=== PATIENT | female | born 1985 | race African-American/Black ===

== ENCOUNTER 2018-01-04 23:26 | Emergency (ER) | payer OTHER ==
[2018-01-04 23:57] VITALS: BP 119/78
[2018-01-05] MEDS ORDERED: DIPHENHYDRAMINE HCL 50 MG CAPSULE PO ONE (02:16)
[2018-01-05] MEDS ORDERED: METOCLOPRAMIDE HCL 10 MG TABLET PO ONE (02:16)
[2018-01-05] MEDS ORDERED: KETOROLAC TROMETHAMINE 60 MG/2 ML SDV IM ONE (02:16)
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
== END 2018-01-05 03:12 | disposition home or self-care (01) ==
LOC: ER 23:26
DX: R51 Headache (principal); R10.9 Unspecified abdominal pain; R11.2 Nausea with vomiting, unspecified; D57.1 Sickle-cell disease without crisis; J45.909 Unspecified asthma, uncomplicated
CPT/HCPCS: 99283; 96372; J1885

== ENCOUNTER 2018-04-12 21:03 | Emergency (ER) | payer SELFPAY ==
[2018-04-12 22:05] LABS: ABSOLUTE BASOPHILS # (AUTO) 0.1 10^3/uL (0.0-0.2); ABSOLUTE EOSINOPHILS # (AUTO) 0.1 10^3/uL (0.0-0.6); ABSOLUTE RETICS # 0.074 10^6/uL (0.028-0.122); BASOPHILS % (AUTO) 0.6 % (0-2); EOSINOPHILS % (AUTO) 1.3 % (0-6); HEMATOCRIT 31.9 % (36.0-47.0); HEMOGLOBIN 10.8 g/dL (12.0-15.5); LYMPHOCYTES % (AUTO) 29.6 % (13-45); MEAN CORPUSCULAR HEMOGLOBIN 27.6 pg (27.0-33.4); MEAN CORPUSCULAR HGB CONC 33.8 g/dL (32.0-36.0); MEAN CORPUSCULAR VOLUME 82 fl (80-97); MONOCYTES % (AUTO) 9.8 % (3-13); PLATELET COUNT 316 10^3/uL (150-450); RED BLOOD COUNT 3.91 10^6/uL (3.72-5.28); RED CELL DISTRIBUTION WIDTH 15.5 % (11.5-14.0); RETICULOCYTE COUNT (AUTO) 1.88 % (0.66-2.85); SEGMENTED NEUTROPHILS % (AUTO) 58.7 % (42-78); TOTAL CELLS COUNTED % (AUTO) 100 %; WHITE BLOOD COUNT 10.3 10^3/uL (4.0-10.5)
[2018-04-12 22:18] LABS: ALANINE AMINOTRANSFERASE 20 U/L (9-52); ALBUMIN 3.6 g/dL (3.5-5.0); ALKALINE PHOSPHATASE 72 U/L (38-126); ANION GAP 9 (5-19); ASPARTATE AMINO TRANSFERASE 13 U/L (14-36); BILIRUBIN,DIRECT 0.3 mg/dL (0.0-0.4); BILIRUBIN,TOTAL 0.3 mg/dL (0.2-1.3); BLOOD UREA NITROGEN 11 mg/dL (7-20); CALCIUM 8.9 mg/dL (8.4-10.2); CARBON DIOXIDE 30 mmol/L (22-30); CHLORIDE 102 mmol/L (98-107); GLUCOSE 93 mg/dL (75-110); POTASSIUM 3.9 mmol/L (3.6-5.0); SODIUM 141.2 mmol/L (137-145); TOTAL PROTEIN 6.9 g/dL (6.3-8.2)
[2018-04-12] MEDS ORDERED: NORMAL SALINE 1000 ML 1,000 ML IV ONE (22:23)
[2018-04-12] MEDS ORDERED: HYDROMORPHONE HCL INJ/PF 2 MG/ML AMPULE IV ONE (22:27)
--- NOTE | 2018-04-12 22:30 | ER Document Report ---
ED General - General Chief Complaint: Sickle Cell Crisis Stated Complaint: ARM/HAND PAIN Time Seen by Provider: 04/12/18 22:21 Mode of Arrival: Ambulatory Information source: Patient Notes: 32-year-old female presents emergency department with complaints of hand and feet pain has been going on for the last 2 days. Patient states that she has a history of sickle cell disease. She follows up in [place]. Patient states that this feels like her typical sickle cell flareup. Patient states that she has been taking muscle relaxants without relief of symptoms. Patient denies any fever, chills, chest pain, shortness of breath, numbness, tingling, or weakness. TRAVEL OUTSIDE OF THE [place] IN LAST 30 DAYS: No - HPI Onset: Other - 2 days Onset/Duration: Gradual Quality of pain: Achy Severity: Moderate Associated symptoms: None Exacerbated by: Denies Relieved by: Denies Similar symptoms previously: Yes Recently seen / treated by doctor: No - Related Data Allergies/Adverse Reactions: carrot Allergy (Verified 07/14/16 11:14) Past Medical History - Social History Smoking Status: Never Smoker Family History: Arthritis, DM, Hypertension, Other - sickle cell. denies: CAD, COPD, CVA, Hyperlipidemia, Malignancy, Thyroid Disfunction Pulmonary Medical History: Reports: Hx Asthma Neurological Medical History: Reports: Hx Seizures - last one last week does not have freq Renal/ Medical History: Reports: Hx Ovarian Cysts. Denies: Hx Peritoneal Dialysis Skin Medical History: Reports Hx Eczema - Immunizations Immunizations up to date: Yes Hx Diphtheria, Pertussis, Tetanus Vaccination: Yes - 2014 Review of Systems - Review of Systems Constitutional: No symptoms reported EENT: No symptoms reported Cardiovascular: No symptoms reported Respiratory: No symptoms reported Gastrointestinal: No symptoms reported Genitourinary: No symptoms reported Musculoskeletal: Joint pain, Muscle pain Skin: No symptoms reported Hematologic/Lymphatic: No symptoms reported Neurological/Psychological: No symptoms reported -: Yes All other systems reviewed and negative Physical Exam - Vital signs Vitals: Temp Pulse Resp BP Pulse Ox 97.9 F 88 15 123/85 99 04/12/18 21:07 04/12/18 21:07 04/12/18 21:07 04/12/18 21:07 04/12/18 21:07 Interpretation: Normal - Notes Notes: PHYSICAL EXAMINATION: GENERAL: Well-appearing, well-nourished and in no acute distress. HEAD: Atraumatic, normocephalic. EYES: Pupils equal round and reactive to light, extraocular movements intact, conjunctiva are normal. ENT: Nares patent, oropharynx clear without exudates. Moist mucous membranes. NECK: Normal range of motion, supple without lymphadenopathy LUNGS: Breath sounds clear to auscultation bilaterally and equal. No wheezes rales or rhonchi. HEART: Regular rate and rhythm without murmurs ABDOMEN: Soft, nontender, nondistended abdomen. No guarding, no rebound. No masses appreciated. Female : deferred Musculoskeletal: Normal range of motion, no pitting or edema. No cyanosis. 2+ radial and DP/PT pulses. NEUROLOGICAL: Cranial nerves grossly intact. Normal speech, normal gait. Normal sensory, motor exams PSYCH: Normal mood, normal affect. SKIN: Warm, Dry, normal turgor, no rashes or lesions noted. Course - Re-evaluation Re-evalutation: 04/12/18 23:45 Patient feeling better on reevaluation. Labs are within normal limits. I will discharge patient home. Patient instructed to continue taking her medication as directed, to follow-up with her primary care physician this week, and to return to the emergency department for any worsening symptoms. - Vital Signs Vital signs: Temp Pulse Resp BP Pulse Ox 97.9 F 88 15 123/85 99 04/12/18 21:07 04/12/18 21:07 04/12/18 21:07 04/12/18 21:07 04/12/18 21:07 - Laboratory Result Diagrams: 04/12/18 21:50 04/12/18 21:50 Laboratory results interpreted by me: 04/12/18 04/12/18 21:50 21:50 Hgb 10.8 L Hct 31.9 L RDW 15.5 H AST 13 L Discharge - Discharge Clinical Impression: Sickle cell anemia Qualifiers: Sickle-cell associated disorders: with unspecified crisis Qualified Code(s): D57.00 - Hb-SS disease with crisis, unspecified; D57.0 - Hb-SS disease with crisis Condition: Good Disposition: HOME, SELF-CARE Instructions: Sickle Cell Crisis ([facility]) Referrals: ROXIE FRANKS MD [COMMUNITY BASED STAFF] - Follow up as needed ECHO BARKER MD [ACTIVE STAFF] - Follow up as needed
[2018-04-13 00:10] VITALS: BP 125/81
== END 2018-04-13 00:09 | disposition home or self-care (01) ==
LOC: ER 21:03
DX: D57.00 Hb-SS disease with crisis, unspecified (principal); J45.909 Unspecified asthma, uncomplicated; Z91.018 Allergy to other foods
CPT/HCPCS: 99284; 36415; 85025; 85045; 80053; J1170; J7030

== ENCOUNTER 2018-07-29 07:16 | Emergency (ER) | payer OTHER ==
[2018-07-29] MEDS ORDERED: IBUPROFEN 800 MG TABLET PO ONE (08:17)
[2018-07-29] MEDS ORDERED: HYDROCODONE/ACETAMINOPHEN 5-325 MG TABLET PO ONE (08:17)
[2018-07-29] MEDS ORDERED: PENICILLIN V POTASSIUM 500 MG TABLET PO ONE (08:17)
--- NOTE | 2018-07-29 08:23 | ER Document Report ---
HPI - HPI Patient complains to provider of: Dental pain, finger pain Onset/Duration: Persistent Quality of pain: Achy Pain Level: 4 Context: Patient presents complaining of right upper dental pain that started yesterday and complains of right fourth finger pain for the past 4 days. Patient denies any specific injury to the finger. 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 Associated Symptoms: Other - Right fourth finger pain, dental pain Exacerbated by: Movement Relieved by: Denies Similar symptoms previously: Yes - Dental pain Recently seen / treated by doctor: No - ROS ROS below otherwise negative: Yes Systems Reviewed and Negative: Yes All other systems reviewed and negative - CONSTITUTIONAL Constitutional: DENIES: Fever - EENT Notes: Dental pain - RESPIRATORY Respiratory: DENIES: Coughing - GASTROINTESTINAL Gastrointestinal: DENIES: Nausea, Patient vomiting - MUSCULOSKELETAL Musculoskeletal: REPORTS: Extremity pain - Right fourth finger. DENIES: Swelling - DERM Skin Color: Normal Skin Problems: None Past Medical History - General Information source: Patient - Social History Smoking Status: Never Smoker Frequency of alcohol use: None Drug Abuse: None Occupation: [employer] plant Lives with: Spouse/Significant other Family History: Arthritis, DM, Hypertension, Other - sickle cell. denies: CAD, COPD, CVA, Hyperlipidemia, Malignancy, Thyroid Disfunction - Medical History Medical History: Other - Sickle cell disease Pulmonary Medical History: Reports: Hx Asthma Neurological Medical History: Reports: Hx Seizures - last one last week does not have freq Renal/ Medical History: Reports: Hx Ovarian Cysts. Denies: Hx Peritoneal Dialysis Skin Medical History: Reports Hx Eczema Surgical Hx: Negative - Immunizations Immunizations up to date: Yes Hx Diphtheria, Pertussis, Tetanus Vaccination: Yes - 2015 Vertical Provider Document - CONSTITUTIONAL Agree With Documented VS: Yes Exam Limitations: No Limitations General Appearance: WD/WN, No Apparent Distress - INFECTION CONTROL TRAVEL OUTSIDE OF THE [place] IN LAST 30 DAYS: No - HEENT HEENT: Atraumatic, Normocephalic Mouth Diagram: 1 - Dental decay, fracture, no gingival abscess, no trismus - NECK Neck: Normal Inspection, Supple. negative: Lymphadenopathy-Left, Lymphadenopathy-Right - RESPIRATORY Respiratory: No Respiratory Distress - BACK Back: Normal Inspection - MUSCULOSKELETAL/EXTREMETIES Musculoskeletal/Extremeties: MAEW, FROM, Tender - Right fourth finger tenderness about the PIP joint, no tendon deficit, no edema or calor noted overlying joint., No Edema. negative: Eccymosis - NEURO Level of Consciousness: Awake, Alert, Appropriate Motor/Sensory: No Motor Deficit, No Sensory Deficit - DERM Integumentary: Warm, Dry, No Rash Course - Re-evaluation Re-evalutation: 07/29/18 08:19 Patient presents with findings consistent with dental caries as well as finger sprain. Suspect likely overuse injury given the nature of patient's employment. Recommended orthopedic follow-up for any persistent pain or problems. Also recommended follow-up with dental care provider for further evaluation. - Vital Signs Vital signs: Temp Pulse Resp BP Pulse Ox 97.9 F 83 18 123/70 99 07/29/18 07:25 07/29/18 07:25 07/29/18 07:25 07/29/18 07:25 07/29/18 07:25 Procedures - Immobilization Right Finger 4th digit Pre-Proc Neuro Vasc Exam: Normal Immobilizer type: Finger splint (Static) Performed by: PCT Post-Proc Neuro Vasc Exam: Normal Alignment checked and good: Yes Discharge - Discharge Clinical Impression: Toothache Sprain of ring finger Qualifiers: Encounter type: initial encounter Sprain of finger site: unspecified site Laterality: right Qualified Code(s): S63.614A - Unspecified sprain of right ring finger, initial encounter Condition: Stable Disposition: HOME, SELF-CARE Instructions: Penicillin V K ([facility]), Sprained Finger ([facility]), Temporary Splint ( [facility]), Toothache ([facility]) Additional Instructions: Return immediately for any new or worsening symptoms Followup with your primary care provider, call tomorrow to make a followup appointment Follow-up with a dental care provider for recheck Follow-up with orthopedic doctor for any persistent pain or problems Prescriptions: Naproxen [Naprosyn 250 Nmg Tablet] 1 tab PO BID #14 tablet Penicillin V Potassium [Penicillin Vk 500 mg Tablet] 500 mg PO BID #20 tablet Forms: Return to Work Referrals: [facility] [Provider Group] - Follow up as needed [facility] [Provider Group] - Follow up as needed
[2018-07-29 08:53] VITALS: BP 121/77
== END 2018-07-29 08:53 | disposition home or self-care (01) ==
LOC: ER 07:16
DX: K08.9 Disorder of teeth and supporting structures, unspecified (principal); S63.614A Unspecified sprain of right ring finger, initial encounter; X58.XXXA Exposure to other specified factors, initial encounter; Y99.0 Civilian activity done for income or pay
CPT/HCPCS: 99283

== ENCOUNTER 2019-02-21 23:43 | Emergency (ER) | payer SELFPAY ==
[2019-02-22] MEDS ORDERED: ALBUTEROL SULFATE 0.083% NEB 2.5 MG/3 ML AMPUL NEB ONE (00:32)
[2019-02-22] MEDS ORDERED: IPRATROPIUM/ALBUTEROL 0.5-2.5 MG/3 ML AMPUL NEB ONE (01:37)
--- NOTE | 2019-02-22 01:37 | ER Document Report ---
ED General - General Chief Complaint: Breathing Difficulty Stated Complaint: TROUBLE BREATHING Time Seen by Provider: 02/22/19 01:19 Primary Care Provider: SHADE CARDENAS MD [ACTIVE STAFF] - Follow up in 3-5 days Notes: Patient is a 33-year-old female with history of asthma and sickle cell anemia that presents to the emergency department for chief complaint of shortness of breath and cough. Patient reports not feeling well since Wednesday night, she is been having cough, and some shortness of breath particular with laying down, states she had a temperature of 99 F at home, has had some night sweats and chills. She denies any nausea, vomiting, chest pain, geri pain, dysuria hematuria. She states she is been using her asthma inhaler at least once a day without much improvement of her symptoms so she decided come to the emergency department. She also is complaining of some sinus congestion sinus pressure, denies taking any bohi-fut-snaviei medications to help alleviate her symptoms. Past Medical History: Sickle cell anemia, asthma, seizure disorder Past Surgical History: Denies recent or pertinent surgical history Social History: Denies current tobacco, alcohol or drug use. Family History: Reviewed and noncontributory for presenting illness Allergies: Reviewed, see documented allergy list. REVIEW OF SYSTEMS: Other than noted above, the 12 point review of systems was reviewed with the patient and were negative, all pertinent findings are included in the HPI. PHYSICAL EXAMINATION: Vital signs reviewed, nursing noted reviewed. GENERAL: Well-appearing, well-nourished and in no acute distress. HEAD: Atraumatic, normocephalic. EYES: Eyes appear normal, extraocular movements intact, sclera anicteric, conjunctiva are normal. ENT: nares patent, oropharynx clear without exudates. Moist mucous membranes. No tenderness over the maxillary sinuses. NECK: Normal range of motion, supple without lymphadenopathy LUNGS: Faint wheezing noted throughout all lung gaines, with expiration, no acute respiratory distress. HEART: Regular rate and rhythm without murmurs ABDOMEN: Soft, nontender, normoactive bowel sounds. No rebound, guarding, or rigidity. No masses appreciated. EXTREMITIES: Nontender, good range of motion, no pitting or edema. NEUROLOGICAL: No focal neurological deficits. Moves all extremities spontaneously Motor and sensory grossly intact on exam. PSYCH: Normal mood, normal affect. SKIN: Warm, Dry, normal turgor, no rashes or lesions noted on exposed skin TRAVEL OUTSIDE OF THE [place] IN LAST 30 DAYS: No - Related Data Allergies/Adverse Reactions: carrot Allergy (Verified 07/14/16 11:14) Past Medical History - Social History Smoking Status: Never Smoker Chew tobacco use (# tins/day): No Drug Abuse: None Family History: Arthritis, DM, Hypertension, Other - sickle cell. denies: CAD, COPD, CVA, Hyperlipidemia, Malignancy, Thyroid Disfunction Patient has suicidal ideation: No Patient has homicidal ideation: No Pulmonary Medical History: Reports: Hx Asthma Neurological Medical History: Reports: Hx Seizures - last one last week does not have freq Renal/ Medical History: Reports: Hx Ovarian Cysts. Denies: Hx Peritoneal Dialysis Skin Medical History: Reports Hx Eczema - Immunizations Immunizations up to date: Yes Hx Diphtheria, Pertussis, Tetanus Vaccination: Yes - 2014 Physical Exam - Vital signs Vitals: Temp Pulse Resp BP Pulse Ox 98.2 F 84 16 115/79 96 02/21/19 23:55 02/21/19 23:55 02/21/19 23:55 02/21/19 23:55 02/21/19 23:55 Course - Re-evaluation Re-evalutation: Patient seen and examined vital signs reviewed. Laboratory data and/or imaging were ordered as appropriate for the patient's presenting symptoms and complaint, with consideration of any critical or life threatening conditions that may be associated with their obtained history and exam as noted above. Patient was treated with DuoNeb breathing treatment, albuterol, and given a dose of IV Solu-Medrol Results were reviewed when available and demonstrated negative chest x-ray, blood work was essentially unremarkable, patient's anemia was only borderline, reticulocyte count was within normal limits The patient was re-evaluated and was stable and improved from respiratory standpoint Evaluation was most consistent with acute asthma exacerbation, will discharge home with prednisone, refill albuterol inhaler today, patient requesting work note, this is provided as well. We will also give her a prescription for azithromycin, for anti-inflammatory purposes and the fact the patient's been having productive cough with asthma. Results were discussed with the patient at this point, after careful consideration I feel that that patient can be discharged from the emergency department, the patient was educated treatments and reasons to return to the emergency department based on their presumed diagnosis as noted above, they were advised to followup with a primary care physician in 2-3 days. Patient was agreeable to plan of care. *Note is created using voice recognition software and may contain spelling, syntax or grammatical errors. Laboratory 02/22/19 02/22/19 01:55 01:55 WBC 10.7 H RBC 4.19 Hgb 11.3 L Hct 34.0 L MCV 81 MCH 26.9 L MCHC 33.2 RDW 16.3 H Plt Count 323 Seg Neutrophils % 63.5 Lymphocytes % 25.5 Monocytes % 7.5 Eosinophils % 2.7 Basophils % 0.8 Absolute Neutrophils 6.8 Absolute Lymphocytes 2.7 Absolute Monocytes 0.8 Absolute Eosinophils 0.3 Absolute Basophils 0.1 Retic Count (auto) 1.58 Absolute Retic 0.066 Sodium 142.2 Potassium 4.0 Chloride 104 Carbon Dioxide 28 Anion Gap 10 BUN 14 Creatinine 0.80 Est GFR ( Amer) > 60 Est GFR (Non-Af Amer) > 60 Glucose 98 Calcium 9.2 Chest X-Ray 02/22/19 01:36 IMPRESSION: Clear lungs. - Vital Signs Vital signs: Temp Pulse Resp BP Pulse Ox 98.2 F 84 22 H 122/88 H 98 02/21/19 23:55 02/21/19 23:55 02/22/19 01:28 02/22/19 01:28 02/22/19 01:28 - Laboratory Result Diagrams: 02/22/19 01:55 02/22/19 01:55 Laboratory results interpreted by me: 02/22/19 01:55 WBC 10.7 H Hgb 11.3 L Hct 34.0 L MCH 26.9 L RDW 16.3 H Discharge - Discharge Clinical Impression: Productive cough Asthma exacerbation Qualifiers: Asthma severity: unspecified severity Asthma persistence: unspecified Qualified Code(s): J45.901 - Unspecified asthma with (acute) exacerbation Condition: Stable Disposition: HOME, SELF-CARE Instructions: Asthma ([facility]) Additional Instructions: Please use inhaler, 2 puffs 4 times daily for the next 5 days, complete the entire course of steroids and antibiotics that are prescribed. Please follow-up with a primary care physician sometime next week. Prescriptions: Azithromycin [Zithromax 250 mg Tablet] 250 mg PO ASDIR #6 tablet Prednisone [Deltasone 10 mg Tablet] 10 mg PO DAILY #20 tablet Forms: Return to Work Referrals: SHADE CARDENAS MD [ACTIVE STAFF] - Follow up in 3-5 days
[2019-02-22] MEDS ORDERED: NORMAL SALINE 1000 ML 1,000 ML IV ONE (02:05)
[2019-02-22 02:09] LABS: ABSOLUTE BASOPHILS # (AUTO) 0.1 10^3/uL (0.0-0.2); ABSOLUTE EOSINOPHILS # (AUTO) 0.3 10^3/uL (0.0-0.6); ABSOLUTE LYMPHOCYTES (AUTO) 2.7 10^3/uL (0.5-4.7); ABSOLUTE MONOCYTES (AUTO) 0.8 10^3/uL (0.1-1.4); ABSOLUTE NEUT (AUTO) 6.8 10^3/uL (1.7-8.2); ABSOLUTE RETICS # 0.066 10^6/uL (0.028-0.122); BASOPHILS % (AUTO) 0.8 % (0-2); EOSINOPHILS % (AUTO) 2.7 % (0-6); HEMOGLOBIN 11.3 g/dL (12.0-15.5); LYMPHOCYTES % (AUTO) 25.5 % (13-45); MEAN CORPUSCULAR HEMOGLOBIN 26.9 pg (27.0-33.4); MEAN CORPUSCULAR HGB CONC 33.2 g/dL (32.0-36.0); MEAN CORPUSCULAR VOLUME 81 fl (80-97); MONOCYTES % (AUTO) 7.5 % (3-13); PLATELET COUNT 323 10^3/uL (150-450); RED BLOOD COUNT 4.19 10^6/uL (3.72-5.28); RED CELL DISTRIBUTION WIDTH 16.3 % (11.5-14.0); RETICULOCYTE COUNT (AUTO) 1.58 % (0.66-2.85); SEGMENTED NEUTROPHILS % (AUTO) 63.5 % (42-78); TOTAL CELLS COUNTED % (AUTO) 100 %; WHITE BLOOD COUNT 10.7 10^3/uL (4.0-10.5)
[2019-02-22 02:30] LABS: ANION GAP 10 (5-19); BLOOD UREA NITROGEN 14 mg/dL (7-20); CALCIUM 9.2 mg/dL (8.4-10.2); CARBON DIOXIDE 28 mmol/L (22-30); CHLORIDE 104 mmol/L (98-107); GLUCOSE 98 mg/dL (75-110); SODIUM 142.2 mmol/L (137-145)
--- NOTE | 2019-02-22 02:40 | RADIOLOGY REPORT (SQ) ---
CLINICAL HISTORY: cough, shortness of breath COMPARISON: None. TECHNIQUE: XR CHEST 2 VIEWS 02/22/2019 1:36 AM CDT FINDINGS: Cardiac silhouette is normal in size. Lungs are clear without consolidation, atelectasis, mass or edema. There is no pleural effusion. There is no pneumothorax. There are no acute osseous findings. IMPRESSION: Clear lungs.
[2019-02-22] MEDS ORDERED: METHYLPREDNISOLONE INJ 125 MG/2 ML SDV IV ONE (02:47)
[2019-02-22] MEDS ORDERED: ALBUTEROL SULFATE HFA (90 MCG/PUFF) 8 GM MDI (1 MDI/ER DISP) IH ONE (03:00)
[2019-02-22 03:14] VITALS: BP 122/95
== END 2019-02-22 03:22 | disposition home or self-care (01) ==
LOC: ER 23:43
DX: J45.901 Unspecified asthma with (acute) exacerbation (principal); D57.1 Sickle-cell disease without crisis
CPT/HCPCS: 94640 ×2; 99285; 96374; 36415; 85025; 85045; 80048; 71046; J2930; J7030; J3490; J7620

== ENCOUNTER 2019-03-16 16:09 | Emergency (ER) | payer SELFPAY ==
[2019-03-16] MEDS ORDERED: NORMAL SALINE 1000 ML 1,000 ML IV ONE (16:45)
--- NOTE | 2019-03-16 16:48 | ER Document Report ---
ED Medical Screen (RME) - General Chief Complaint: Abdominal Pain Stated Complaint: STOMACH PAIN Time Seen by Provider: 03/16/19 16:45 Mode of Arrival: Ambulatory Information source: Patient Notes: 33-year-old female presented to ED for abdominal pain nausea vomiting vaginal bleeding. She states she started her period on Wednesday then about 230 this morning. Got much heavier and she is gone through 5 nighttime pads today. She states she does have a history of asthma, sickle cell, and seizures. Patient is alert oriented respirations regular and unlabored speaking in full sentences walks with a even steady gait. I have greeted and performed a rapid initial assessment of this patient. A comprehensive ED assessment and evaluation of the patient, analysis of test results and completion of medical decision making process will be conducted by an additional ED providers. Dictation of this chart was performed using voice recognition software; therefore, there may be some unintended grammatical errors. TRAVEL OUTSIDE OF THE [place] IN LAST 30 DAYS: No - Related Data Allergies/Adverse Reactions: carrot Allergy (Verified 03/16/19 16:11) Past Medical History - Social History Frequency of alcohol use: None Drug Abuse: None Pulmonary Medical History: Reports: Hx Asthma Neurological Medical History: Reports: Hx Seizures - last one last week does not have freq Renal/ Medical History: Reports: Hx Ovarian Cysts. Denies: Hx Peritoneal Dialysis Skin Medical History: Reports Hx Eczema - Immunizations Immunizations up to date: Yes Hx Diphtheria, Pertussis, Tetanus Vaccination: Yes - 2014 Physical Exam - Vital signs Vitals: Temp Pulse Resp BP Pulse Ox 97.8 F 95 16 132/88 H 97 03/16/19 16:27 03/16/19 16:27 03/16/19 16:27 03/16/19 16:27 03/16/19 16:27 Course - Vital Signs Vital signs: Temp Pulse Resp BP Pulse Ox 97.8 F 95 16 132/88 H 97 03/16/19 16:27 03/16/19 16:27 03/16/19 16:27 03/16/19 16:27 03/16/19 16:27
[2019-03-16] MEDS ORDERED: ONDANSETRON HCL INJ/PF 4 MG/2 ML SDV IV ONE (16:49)
[2019-03-16 17:24] LABS: ABSOLUTE BASOPHILS # (AUTO) 0.1 10^3/uL (0.0-0.2); ABSOLUTE EOSINOPHILS # (AUTO) 0.3 10^3/uL (0.0-0.6); ABSOLUTE LYMPHOCYTES (AUTO) 2.7 10^3/uL (0.5-4.7); ABSOLUTE MONOCYTES (AUTO) 0.8 10^3/uL (0.1-1.4); ABSOLUTE NEUT (AUTO) 5.8 10^3/uL (1.7-8.2); ABSOLUTE RETICS # 0.077 10^6/uL (0.028-0.122); BASOPHILS % (AUTO) 1.3 % (0-2); EOSINOPHILS % (AUTO) 3.1 % (0-6); HEMATOCRIT 35.2 % (36.0-47.0); HEMOGLOBIN 11.7 g/dL (12.0-15.5); LYMPHOCYTES % (AUTO) 27.7 % (13-45); MEAN CORPUSCULAR HEMOGLOBIN 27.1 pg (27.0-33.4); MEAN CORPUSCULAR HGB CONC 33.3 g/dL (32.0-36.0); MEAN CORPUSCULAR VOLUME 81 fl (80-97); MONOCYTES % (AUTO) 8.1 % (3-13); PLATELET COUNT 333 10^3/uL (150-450); RED BLOOD COUNT 4.32 10^6/uL (3.72-5.28); RED CELL DISTRIBUTION WIDTH 16.4 % (11.5-14.0); RETICULOCYTE COUNT (AUTO) 1.79 % (0.66-2.85); SEGMENTED NEUTROPHILS % (AUTO) 59.8 % (42-78); TOTAL CELLS COUNTED % (AUTO) 100 %; WHITE BLOOD COUNT 9.7 10^3/uL (4.0-10.5)
[2019-03-16 17:42] LABS: APPEARANCE,URINE SLIGHTLY-CLOUDY; BILIRUBIN,URINE NEGATIVE (NEGATIVE); COLOR,URINE YELLOW; GLUCOSE, URINE NEGATIVE (NEGATIVE); KETONES,URINE NEGATIVE (NEGATIVE); LEUKOCYTE ESTERASE,URINE NEGATIVE (NEGATIVE); NITRITE,URINE NEGATIVE (NEGATIVE); PROTEIN,URINE NEGATIVE (NEGATIVE); URINE SPECIFIC GRAVITY 1.014; UROBILINOGEN,URINE NEGATIVE mg/dL (<2.0)
[2019-03-16 17:46] LABS: ALANINE AMINOTRANSFERASE 12 U/L (9-52); ALBUMIN 3.8 g/dL (3.5-5.0); ALKALINE PHOSPHATASE 74 U/L (38-126); ANION GAP 7 (5-19); ASPARTATE AMINO TRANSFERASE 15 U/L (14-36); BILIRUBIN,DIRECT 0.2 mg/dL (0.0-0.4); BILIRUBIN,TOTAL 0.3 mg/dL (0.2-1.3); BLOOD UREA NITROGEN 11 mg/dL (7-20); CALCIUM 9.8 mg/dL (8.4-10.2); CARBON DIOXIDE 28 mmol/L (22-30); CHLORIDE 105 mmol/L (98-107); GLUCOSE 90 mg/dL (75-110); SODIUM 140.1 mmol/L (137-145); TOTAL PROTEIN 7.4 g/dL (6.3-8.2)
[2019-03-16] MEDS ORDERED: ACETAMINOPHEN 325 MG TABLET PO ONE (19:28)
--- NOTE | 2019-03-16 20:42 | ER Document Report ---
ED General - General Chief Complaint: Abdominal Pain Stated Complaint: STOMACH PAIN Time Seen by Provider: 03/16/19 16:45 Primary Care Provider: JOSE PARKINSON MD [ACTIVE STAFF] - Follow up tomorrow Mode of Arrival: Ambulatory Notes: Patient is a 33-year-old female who presents the emergency department with a chief complaint of abdominal pain. Her symptoms started at 2:00 this morning. She states that she has not been able to hold anything down. She is currently on her menstrual cycle. She started 2 days ago. She states that she has had heavier bleeding than normal. She is currently not on control, because she is attempting to get . She has a past medical history of seizures, sickle cell disease, and asthma. TRAVEL OUTSIDE OF THE [place] IN LAST 30 DAYS: No - Related Data Allergies/Adverse Reactions: carrot Allergy (Verified 03/16/19 16:11) Past Medical History - General Information source: Patient - Social History Smoking Status: Never Smoker Frequency of alcohol use: None Drug Abuse: None Family History: Arthritis, DM, Hypertension, Other - sickle cell. denies: CAD, COPD, CVA, Hyperlipidemia, Malignancy, Thyroid Disfunction Patient has suicidal ideation: No Patient has homicidal ideation: No Pulmonary Medical History: Reports: Hx Asthma Neurological Medical History: Reports: Hx Seizures - last one last week does not have freq Renal/ Medical History: Reports: Hx Ovarian Cysts. Denies: Hx Peritoneal Dialysis Skin Medical History: Reports Hx Eczema - Immunizations Immunizations up to date: Yes Hx Diphtheria, Pertussis, Tetanus Vaccination: Yes - 2014 Review of Systems - Review of Systems Notes: REVIEW OF SYSTEMS: CONSTITUTIONAL : Denies recent illness. Denies recent unintentional weight loss. Denies fever, chills, or sweats. EENT: Denies eye, ear, throat, or mouth pain, discharge, or symptoms. Denies nasal or sinus congestion. CARDIOVASCULAR: Denies chest pain. RESPIRATORY: Denies shortness of breath, cough, congestion, difficulty breathing, or wheezing. GASTROINTESTINAL: See HPI GENITOURINARY: Denies difficulty urinating, burning, blood in urine, urgency or frequency. FEMALE GENITOURINARY: See HPI MUSCULOSKELETAL: Denies neck and back pain. Denies joint pain or swelling. SKIN: Denies rash, itchiness, or lesions HEMATOLOGIC : Denies easy bruising or bleeding. LYMPHATIC: Denies swollen, painful, enlarged glands. NEUROLOGICAL: Denies no numbness or tingling denies weakness. Denies headache. Denies altered mental status. Denies alteration in speech. PSYCHIATRIC: Denies stress, anxiety, alteration in sleep patterns, or depression. All other systems reviewed and negative. Physical Exam - Vital signs Vitals: Temp Pulse Resp BP Pulse Ox 97.8 F 95 16 132/88 H 97 03/16/19 16:27 03/16/19 16:27 03/16/19 16:27 03/16/19 16:27 03/16/19 16:27 - Notes Notes: PHYSICAL EXAMINATION: GENERAL: Appears well, healthy, well-nourished, no acute distress. HEAD: Normocephalic, atraumatic. EYES: PERRL, conjunctiva normal, all extraocular movements intact, sclera nonicteric ENT: Moist mucous membranes. NECK: Supple, no noticeable swelling, redness, rash. Normal range of motion. LUNGS: Equal breath sounds bilaterally and clear to auscultation. No wheezes rales or rhonchi. CARDIOVASCULAR: S1-S2, regular rate, regular rhythm. Radial pulses 2+, normal. ABDOMEN: Normoactive bowel sounds. Firm, grossly tender, mass palpated to mid upper abdomen about 3 to 4 cm above umbilicus. EXTREMITIES: Normal strength and range of motion, no pitting or edema. No cyanosis. NEUROLOGICAL: Moves all extremities upon command. Strength 5/5 in all extremities. PSYCH: Normal mood, normal affect. SKIN: Warm, dry. No rash, lesions, ulcerations noted. Normal skin turgor. DRUG INSPECTOR: Mild amount of blood noted at cervix. No large clots noted. Course - Re-evaluation Re-evalutation: 03/16/19 22:17 Pelvic exam was done with my read, PCT at bedside. Patient states that she has not changed her pad since 5:00 this afternoon. It seems as her bleeding has slowed down. She has blood in it, but this is consistent with her vaginal bleeding. Her chemistries are unremarkable. hCG is negative. I also discussed this case with Dr. Yanira De LaC ruz and he is recommending a CT of the abdomen and pelvis. 03/17/19 00:23 Patient's CAT scan, she has a enlarged uterus, most likely containing my l eiomyomas. I spoke with Dr. Veliz, the GRINDING WHEEL OPERATOR on-call. Since the patient is not grossly anemic and has a hemoglobin of 11.7, Dr. Veliz would like to see the patient in the office tomorrow morning. I discussed this with the patient. She will follow-up with Dr. Veliz or a provider from [facility] to schedule further evaluation for her leiomyomas. The patient is in agreement with this plan. I will send her home with some Toradol. Verbal discharge instructions were given to the patient. They verbalized understanding. They are stable for discharge. - Vital Signs Vital signs: Temp Pulse Resp BP Pulse Ox 98.5 F 78 18 129/85 H 98 03/17/19 00:45 03/17/19 00:45 03/17/19 00:45 03/17/19 00:45 03/17/19 00:45 - Laboratory Result Diagrams: 03/16/19 17:00 03/16/19 17:00 Laboratory results interpreted by me: 03/16/19 03/16/19 17:00 17:00 Hgb 11.7 L Hct 35.2 L RDW 16.4 H Urine Blood LARGE H Discharge - Discharge Clinical Impression: Leiomyoma, Vaginal bleeding Abdominal pain Qualifiers: Abdominal location: generalized Qualified Code(s): R10.84 - Generalized abdom inal pain Condition: Stable Disposition: HOME, SELF-CARE Additional Instructions: You are seen today in the emergency department for vaginal bleeding and abdominal pain. Your CT scan shows that you have an enlarged uterus due to leimyomas. These follow-up with [facility] tomorrow. You can take Tylenol 1000 mg every 6 hours as needed for your pain. If you pass out, have worsening symptoms, or have any symptoms that are worrisome to you, please return to the emergency department. Forms: Return to Work Referrals: JOSE PARKINSON MD [ACTIVE STAFF] - Follow up tomorrow
--- NOTE | 2019-03-16 22:58 | RADIOLOGY REPORT (SQ) ---
CT ABDOMEN PELVIS WITH IV CONTRAST HISTORY: Abdominal pain. COMPARISON: None. TECHNIQUE: CT scan of the abdomen and pelvis was performed with IV contrast. This exam was performed according to our departmental dose-optimization program, which includes automated exposure control, adjustment of the mA and/or kV according to patient size and/or use of iterative reconstruction technique. FINDINGS: The lung bases are clear. No pleural or pericardial effusions. There is no hiatal hernia. The liver, spleen, pancreas, gallbladder, adrenal glands, and kidneys are unremarkable. No urinary stones are seen. The uterus is massively enlarged, with a maximum length of 21 cm. There are multiple masses within the myometrium which may represent multiple leiomyomas. Mild pelvic free fluid is nonspecific. The ovaries are not well-visualized. No small bowel obstruction. The the appendix is not visualized. There is no evidence of diverticulitis. No intraperitoneal free air is identified. The aorta is normal caliber. No acute bony findings are seen. No pathologic body wall hernia is seen. IMPRESSION: Massively enlarged uterus likely containing multiple leiomyomas. Consider MRI for complete evaluation.
[2019-03-17] MEDS ORDERED: ACETAMINOPHEN 325 MG TABLET PO ONE (00:16)
[2019-03-17 00:46] VITALS: BP 129/85
== END 2019-03-17 00:46 | disposition home or self-care (01) ==
LOC: ER 16:09
DX: D25.9 Leiomyoma of uterus, unspecified (principal); N93.9 Abnormal uterine and vaginal bleeding, unspecified; R10.84 Generalized abdominal pain; R10.9 Unspecified abdominal pain; J45.909 Unspecified asthma, uncomplicated
CPT/HCPCS: 99284; 96361; 96374; 36415; 83690; 84703; 85025; 85045; 80053; 81001; 74177; J2405; J7030

== ENCOUNTER 2019-06-18 18:45 | Emergency (ER) | payer SELFPAY ==
[2019-06-18 19:21] VITALS: BP 120/90
[2019-06-18] MEDS ORDERED: IBUPROFEN 800 MG TABLET PO ONE (19:37)
[2019-06-18] MEDS ORDERED: LIDOCAINE 2% VISCOUS SOLN 20 ML UDCUP PO ONE (19:37)
--- NOTE | 2019-06-18 19:41 | ER Document Report ---
HPI - HPI Time Seen by Provider: 06/18/19 19:32 Pain Level: 5 Notes: Patient is a 34yo female who presents to the ED complaining of Rt upper dental pain #4 with swelling that started x1 day. She has not noticed any obvious abscess or purulent discharge. Patient states that she is still able to eat and drink, but does have a decreased p.o. intake due to the pain. She has tried some [id number] meds with minimal relief. No other concerns or complaints. Contrary to the echo, patient does not believe this is a sickle cell crisis. Denies any headache, fever, head injury, neck pain, hoarseness, drooling, URI, sore throat, chest pain, palpitations, syncope, cough, shortness of breath, wheeze, dyspnea, abdominal pain, nausea/vomiting/diarrhea, urinary retention, dysuria, hematuria, or rash. - ROS Systems Reviewed and Negative: Yes All other systems reviewed and negative - REPRODUCTIVE Reproductive: DENIES: : - DERM Skin Color: Normal Past Medical History - Social History Smoking Status: Never Smoker Frequency of alcohol use: Occasional Drug Abuse: None Family History: Arthritis, DM, Hypertension, Other - sickle cell. denies: CAD, COPD, CVA, Hyperlipidemia, Malignancy, Thyroid Disfunction Patient has suicidal ideation: No Patient has homicidal ideation: No Pulmonary Medical History: Reports: Hx Asthma Neurological Medical History: Reports: Hx Seizures Renal/ Medical History: Reports: Hx Ovarian Cysts. Denies: Hx Peritoneal Dialysis Skin Medical History: Reports Hx Eczema - Immunizations Immunizations up to date: Yes Hx Diphtheria, Pertussis, Tetanus Vaccination: Yes - 2014 [facility] Provider Document - CONSTITUTIONAL Agree With Documented VS: Yes Notes: PHYSICAL EXAMINATION: GENERAL: Well-appearing, well-nourished and in no acute distress. HEAD: Atraumatic, normocephalic. EYES: Pupils equal round and reactive to light, extraocular movements intact, sclera anicteric, conjunctiva are normal. ENT: EAC clear b/l. TM's intact b/l without erythema, fluid, or perforation. Nares patent and without discharge. oropharynx clear without exudates. No tonsilar hypertrophy or erythema. Moist mucous membranes. No sinus tenderness. Uvula midline. No palatine shift. No tongue protrusion. No respiratory compromise. Mouth: Poor dentition. + Severe decay and mild gingivitis. No obvious abscess or discharge noted. Very minimal right upper jaw swelling. + tenderness to tooth #4. NECK: Normal range of motion, supple without lymphadenopathy. No rigid ity/meningismus. LUNGS: Breath sounds clear to auscultation bilaterally and equal. No wheezes rales or rhonchi. HEART: Regular rate and rhythm without murmurs, rubs, gallops. NEUROLOGICAL: Cranial nerves grossly intact. Normal speech, normal gait. PSYCH: Normal mood, normal affect. SKIN: Warm, Dry, normal turgor, no rashes or lesions noted. - INFECTION CONTROL TRAVEL OUTSIDE OF THE [place] IN LAST 30 DAYS: No Course - Re-evaluation Re-evalutation: 06/18/19 19:39 Patient is an afebrile, well-hydrated, 34-year-old female who presents to the ED with dental pain, suspect nerve root etiology versus infection. Vitals are acceptable. PE is otherwise unremarkable. No I&D, labs, or imaging warranted at this time based on H&P. Viscous lidocaine dispensed today as well as Motrin given p.o. I will send her home with a prescription for clindamycin. Low suspicion for any meningitis, sepsis, peritonsillar/pharyngeal abscess, respiratory compromise, Zach's, temporal arteritis, or other emergent systemic condition at this time. Patient is aware this condition can change from initial presentation and she needs to monitor symptoms closely. Patient does not have any chest pain, shortness, or dyspnea on exertion. No other joint or extremity pain. Conservative measures otherwise for symptoms. Call to schedule an appointment with a dentist for further evaluation and management. Recheck with your PCM this week as well. Return to the ED with any worsening/concerning symptoms otherwise as reviewed in discharge. Patient is in agreement. - Vital Signs Vital signs: Temp Pulse Resp BP Pulse Ox 98.8 F 88 16 120/90 H 96 06/18/19 19:19 06/18/19 19:19 06/18/19 19:19 06/18/19 19:19 06/18/19 19:19 Discharge - Discharge Clinical Impression: Pain, dental Condition: Stable Disposition: HOME, SELF-CARE Instructions: Clindamycin ([facility]), Toothache ([facility]) Additional Instructions: Almond and floss twice daily Maintain fluid intake Take antibiotics as directed Mouthwash, salt water gargles, peroxide rinse as needed Tylenol/ibuprofen as needed Recheck with PCM this week Call today/tomorrow and schedule an appointment with your dentist for further evaluation Return to the ED with any worsening symptoms and/or development of fever, headache, facial swelling, swelling of lips/tongue/throat, trouble swallowing, drooling, hoarseness, neck pain/stiffness, chest pain, palpitations, syncope, shortness of breath, trouble breathing, abdominal pain, n/v/d, numbness/tingling, or other worsening symptoms that are concerning to you. Prescriptions: Clindamycin HCl [Cleocin 300 mg Capsule] 300 mg PO TID #30 capsule Forms: Elevated Blood Pressure Referrals: [facility] [Provider Group] - Follow up as needed
== END 2019-06-18 19:48 | disposition home or self-care (01) ==
LOC: EDBD → ER 18:45
DX: K08.89 Other specified disorders of teeth and supporting structures (principal); R22.0 Localized swelling, mass and lump, head; R63.0 Anorexia; J45.909 Unspecified asthma, uncomplicated
CPT/HCPCS: J3490

== ENCOUNTER 2019-08-09 13:13 | Emergency (ER) | payer SELFPAY ==
--- NOTE | 2019-08-09 13:56 | ER Document Report ---
ED Medical Screen (RME) - General Chief Complaint: Cold Symptoms Stated Complaint: DIFFICULTY BREATHING Time Seen by Provider: 08/09/19 13:50 Mode of Arrival: Ambulatory Information source: Patient Notes: 33-year-old female presented to ED for shortness of breath with a green productive mucousy cough, congestion sore throat bilateral ear pain body aches and fatigue hurting this morning. No meds prior to arrival in denies a fever. Pulse of 106. She has a history of asthma and sickle cell anemia. States she had all the medicines she needed for her sickle cell when she first moved here now she will be going to her local doctor and get an referred to a paste plant supervisor. Does have some expiratory wheezes. She does have a history of asthma and does not have any nebulizer medications at home at this time. Will treat with prednisone DuoNeb get an x-ray. I have greeted and performed a rapid initial assessment of this patient. A comprehensive ED assessment and evaluation of the patient, analysis of test results and completion of medical decision making process will be conducted by an additional ED providers. TRAVEL OUTSIDE OF THE [place] IN LAST 30 DAYS: No - Related Data Allergies/Adverse Reactions: cabbage Allergy (Verified 08/09/19 13:48) carrot Allergy (Verified 08/09/19 13:48) Home Medications: sickle cell meds unkn name Past Medical History - Social History Chew tobacco use (# tins/day): No Frequency of alcohol use: Rare Drug Abuse: None Pulmonary Medical History: Reports: Hx Asthma Neurological Medical History: Reports: Hx Seizures Renal/ Medical History: Reports: Hx Ovarian Cysts. Denies: Hx Peritoneal Dialysis Skin Medical History: Reports Hx Eczema - Immunizations Immunizations up to date: Yes Hx Diphtheria, Pertussis, Tetanus Vaccination: Yes - 2014 Physical Exam - Vital signs Vitals: Temp Pulse Resp BP Pulse Ox 97.8 F 106 H 18 126/90 H 99 08/09/19 13:44 08/09/19 13:44 08/09/19 13:44 08/09/19 13:44 08/09/19 13:44 Course - Vital Signs Vital signs: Temp Pulse Resp BP Pulse Ox 97.8 F 106 H 18 126/90 H 99 08/09/19 13:44 08/09/19 13:44 08/09/19 13:44 08/09/19 13:44 08/09/19 13:44
[2019-08-09] MEDS ORDERED: PREDNISONE 20 MG TABLET PO ONE (13:57)
[2019-08-09] MEDS ORDERED: IPRATROPIUM/ALBUTEROL 0.5-2.5 MG/3 ML AMPUL NEB ONE ×2 (13:57→18:15)
--- NOTE | 2019-08-09 14:36 | RADIOLOGY REPORT (SQ) ---
EXAM DESCRIPTION: CHEST 2 VIEWS COMPLETED DATE/TIME: 08/09/2019 2:23 pm REASON FOR STUDY: Of chest congestion COMPARISON: 02/22/2019 EXAM PARAMETERS: NUMBER OF VIEWS: two views TECHNIQUE: Digital Frontal and Lateral radiographic views of the chest acquired. RADIATION DOSE: NA LIMITATIONS: none FINDINGS: LUNGS AND PLEURA: No opacities, masses or pneumothorax. No pleural effusion. MEDIASTINUM AND HILAR STRUCTURES: No masses or contour abnormalities. HEART AND VASCULAR STRUCTURES: Heart normal size. No evidence for failure. BONES: No acute findings. HARDWARE: None in the chest. OTHER: No other significant finding. IMPRESSION: NO ACUTE RADIOGRAPHIC FINDING IN THE CHEST. TECHNICAL DOCUMENTATION: JOB ID: [id number] [employer]- All Rights Reserved Reading location - IP/workstation name: [email or web address]
[2019-08-09] MEDS ORDERED: OXYCODONE-ACETAMINOPHEN 5-325 MG TABLET PO ONE (18:15)
[2019-08-09] MEDS ORDERED: NORMAL SALINE 1000 ML 1,000 ML IV ONE (18:15)
[2019-08-09 19:15] LABS: ABSOLUTE RETICS # 0.074 10^6/uL (0.028-0.122); HEMATOCRIT 36.9 % (36.0-47.0); HEMOGLOBIN 12.3 g/dL (12.0-15.5); MEAN CORPUSCULAR HGB CONC 33.3 g/dL (32.0-36.0); MEAN CORPUSCULAR VOLUME 81 fl (80-97); PLATELET COUNT 326 10^3/uL (150-450); RED BLOOD COUNT 4.55 10^6/uL (3.72-5.28); RED CELL DISTRIBUTION WIDTH 16.3 % (11.5-14.0); RETICULOCYTE COUNT (AUTO) 1.62 % (0.66-2.85); WHITE BLOOD COUNT 19.2 10^3/uL (4.0-10.5)
[2019-08-09 19:30] LABS: ALBUMIN 4.3 g/dL (3.5-5.0); ALKALINE PHOSPHATASE 104 U/L (38-126); ANION GAP 14 (5-19); ASPARTATE AMINO TRANSFERASE 28 U/L (14-36); BILIRUBIN,DIRECT 0.1 mg/dL (0.0-0.4); BILIRUBIN,TOTAL 0.8 mg/dL (0.2-1.3); BLOOD UREA NITROGEN 13 mg/dL (7-20); CALCIUM 9.9 mg/dL (8.4-10.2); CARBON DIOXIDE 22 mmol/L (22-30); CHLORIDE 106 mmol/L (98-107); GLUCOSE 142 mg/dL (75-110); POTASSIUM 4.3 mmol/L (3.6-5.0); TOTAL PROTEIN 8.2 g/dL (6.3-8.2)
[2019-08-09 19:39] LABS: ANISOCYTOSIS 1+; BASOPHILS % (MANUAL) 0 % (0-2); EOSINOPHILS % (MANUAL) 0 % (0-6); LYMPHOCYTES % (MANUAL) 5 % (13-45); MONOCYTES % (MANUAL) 0 % (3-13); PLATELET COMMENT ADEQUATE; SEGMENTED NEUTROPHILS % (MAN) 95 % (42-78); TOTAL CELLS COUNTED 100
--- NOTE | 2019-08-09 20:06 | ER Document Report ---
ED General - General Chief Complaint: Cold Symptoms Stated Complaint: DIFFICULTY BREATHING Time Seen by Provider: 08/09/19 13:50 Primary Care Provider: [facility] [Provider Group] - Follow up as needed Mode of Arrival: Ambulatory TRAVEL OUTSIDE OF THE [place] IN LAST 30 DAYS: No - HPI Notes: 33 year old female to the ED with C/O productive cough and chest pain that began today. States that she has body aches, sore throat, and nasal congestion as well. States that she has sickle cell. 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 States she takes 10 mg Percocets but has not had some in over one month. She continues to take her folic acid and her hydroxyurea. Denies measured temperature. Denies hx of Acute Chest Syndrome. Last Transfusion was over one year ago along with last admission to the hospital. Denies any other complaints today. Admits to sick contact. States that this doesn't feel particularly like a sickle cell crisis. - Related Data Allergies/Adverse Reactions: cabbage Allergy (Verified 08/09/19 13:48) carrot Allergy (Verified 08/09/19 13:48) Home Medications: sickle cell meds unkn name Past Medical History - General Information source: Patient - Social History Smoking Status: Never Smoker Chew tobacco use (# tins/day): No Frequency of alcohol use: Rare Drug Abuse: None Family History: Arthritis, DM, Hypertension, Other - sickle cell. denies: CAD, COPD, CVA, Hyperlipidemia, Malignancy, Thyroid Disfunction Patient has suicidal ideation: No Patient has homicidal ideation: No Pulmonary Medical History: Reports: Hx Asthma Neurological Medical History: Reports: Hx Seizures Renal/ Medical History: Reports: Hx Ovarian Cysts. Denies: Hx Peritoneal Dialysis Skin Medical History: Reports Hx Eczema - Immunizations Immunizations up to date: Yes Hx Diphtheria, Pertussis, Tetanus Vaccination: Yes - 2014 Review of Systems - Review of Systems Constitutional: Malaise. denies: Chills, Fever EENT: Nose congestion, Nose discharge, Throat pain Cardiovascular: Chest pain - tussive chest pain. denies: Syncope, Dizziness, Lightheaded Respiratory: See HPI, Cough, Hurts to breathe Gastrointestinal: denies: Abdominal pain, Diarrhea, Nausea, Vomiting Genitourinary: No symptoms reported Female Genitourinary: No symptoms reported Musculoskeletal: denies: Back pain, Muscle pain Skin: No symptoms reported Hematologic/Lymphatic: No symptoms reported Neurological/Psychological: No symptoms reported -: Yes All other systems reviewed and negative Physical Exam - Vital signs Vitals: Temp Pulse Resp BP Pulse Ox 97.8 F 106 H 18 126/90 H 99 08/09/19 13:44 08/09/19 13:44 08/09/19 13:44 08/09/19 13:44 08/09/19 13:44 Interpretation: Normal - General General appearance: Appears well, Alert - HEENT Head: Normocephalic, Atraumatic Eyes: Normal Pupils: PERRL Ears: Normal External canal: Normal Tympanic membrane: Normal Sinus: Normal Nasal: Clear rhinorrhea. No: Purulent discharge Mouth/Lips: Normal. No: Angioedema Mucous membranes: Normal Pharynx: Post nasal drainage. No: Erythema, Exudate, Peritonsillar abscess, Retropharyngeal abscess, Tonsillar hypertrophy, Uvular edema, Potential airway comprom. Neck: Normal, Supple. No: Lymphadenopathy, Meningismus - Respiratory Respiratory status: No respiratory distress Chest status: Nontender. No: Pain on movement, Pain with cough, Pain with deep breathing, Accessory muscle use Breath sounds: Normal. No: Rales, Stridor, Wheezing - per traige note, patient was wheezing in triage. She was given a breathing treatment prior to my exam. She has no wheezing on my exam. Mildly decreased breath sounds throughout. Chest palpation: Normal - Cardiovascular Rhythm: Regular Heart sounds: Normal auscultation Murmur: No - Abdominal Inspection: Normal Distension: No distension Bowel sounds: Normal Tenderness: Nontender Organomegaly: No organomegaly - Back Back: Normal, Nontender - Neurological Neuro grossly intact: Yes Cognition: Normal Orientation: AAOx4 [place] Coma Scale Eye Opening: Spontaneous [place] Coma Scale Verbal: Oriented [place] Coma Scale Motor: Obeys Commands [place] Coma Scale Total: 15 Speech: Normal Cranial nerves: Normal Cerebellar coordination: Normal Motor strength normal: LUE, RUE, LLE, RLE Additional motor exam normals: Equal roll hand Sensory: Normal - Psychological Associated symptoms: Normal affect, Normal mood - Skin Skin Temperature: Warm Skin Moisture: Dry Skin Color: Normal Course - Re-evaluation Re-evalutation: Noted labs -- patient reports recent steroid injection. This may be a cause of her leukocytosis. States she feels much better after a bag of fluid and pain control. Will cross cover with Abx given her medical history, send home with small amt of pain meds. Encouraged to call PCP for close outpatient care. Return if worse. low suspicion sickle cell crisis or acute chest syndrome. - Vital Signs Vital signs: Temp Pulse Resp BP Pulse Ox 98.2 F 112 H 18 125/66 96 08/09/19 20:11 08/09/19 20:11 08/09/19 20:11 08/09/19 20:11 08/09/19 20:11 - Laboratory Result Diagrams: 08/09/19 18:53 08/09/19 18:53 Laboratory results interpreted by me: 08/09/19 08/09/19 18:53 18:53 WBC 19.2 H RDW 16.3 H Seg Neuts % (Manual) 95 H Lymphocytes % (Manual) 5 L Monocytes % (Manual) 0 L Abs Neuts (Manual) 18.2 H Abs Monocytes (Manual) 0.0 L Glucose 142 H - Diagnostic Test Radiology reviewed: Image reviewed, Reports reviewed Discharge - Discharge Clinical Impression: Bronchitis, Wheezing, History of sickle cell anemia Condition: Stable Disposition: HOME, SELF-CARE Instructions: Bronchitis With Bronchospasm (Wheezing) ([facility]) Additional Instructions: PUSH FLUIDS. COMPLETE ANTIBIOTICS. RETURN IF WORSE. FOLLOW UP WITH YOUR DOCTOR TOMORROW. Prescriptions: Benzonatate [Tessalon Perle 100 mg Capsule] 100 mg PO Q8HP PRN #40 cap PRN Reason: Oxycodone HCl/Acetaminophen [Percocet 5-325 mg Tablet] 1 tab PO Q6H PRN #9 tablet PRN Reason: Azithromycin [Zithromax 250 mg Tablet] 250 mg PO ASDIR PRN #6 tablet PRN Reason: Forms: Return to Work Referrals: [facility] [Provider Group] - Follow up as needed
[2019-08-09 20:12] VITALS: BP 125/66
[2019-08-09] MEDS ORDERED: ALBUTEROL SULFATE HFA (90 MCG/PUFF) 200 PUFF/8.5 GM MDI IH ONE (20:20)
== END 2019-08-09 20:36 | disposition home or self-care (01) ==
LOC: ER 13:13
DX: J45.909 Unspecified asthma, uncomplicated (principal); D57.1 Sickle-cell disease without crisis; R05 Cough; R07.9 Chest pain, unspecified; M79.10 Myalgia, unspecified site; J02.9 Acute pharyngitis, unspecified; R09.81 Nasal congestion; Z79.899 Other long term (current) drug therapy
CPT/HCPCS: 94640 ×2; 99285; 96360; 36415; 85025; 85045; 80053; 71046; J7512; J7030; J3490; J7620

== ENCOUNTER 2020-01-29 09:49 | Emergency (ER) | payer SELFPAY ==
[2020-01-29] MEDS ORDERED: KETOROLAC TROMETHAMINE 60 MG/2 ML SDV IM ONE (10:05)
[2020-01-29] MEDS ORDERED: KETOROLAC TROMETHAMINE INJ/PF 30 MG/1 ML SDV IV ONE (10:06)
--- NOTE | 2020-01-29 10:06 | ER Document Report ---
ED Medical Screen (RME) - General Chief Complaint: Flank Pain Stated Complaint: RIGHT FLANK PAIN Time Seen by Provider: 01/29/20 10:02 Mode of Arrival: Ambulatory Information source: Patient Notes: 34-year-old female patient presenting to the emergency department 3-day history of right flank pain. Patient reports she has been drinking cranberry juice to try to make the pain go away. She also reports pain across the low abdomen and abnormal vaginal discharge. She denies any nausea, vomiting, diarrhea, dysuria, urinary frequency or fever. CVA tenderness on the right side, tenderness with palpation across the low abdomen. I have greeted and performed a rapid initial assessment of this patient. A comprehensive ED assessment and evaluation of the patient, analysis of test results and completion of the medical decision making process will be conducted by additional ED providers. I have specifically instructed the patient or family members with the patient to immediately return to any nursing staff should anything change in the patient's condition or with their chief complaint. TRAVEL OUTSIDE OF THE [place] IN LAST 30 DAYS: No - Related Data Allergies/Adverse Reactions: cabbage Allergy (Verified 08/09/19 13:48) carrot Allergy (Verified 08/09/19 13:48) Past Medical History Pulmonary Medical History: Reports: Hx Asthma Neurological Medical History: Reports: Hx Seizures Renal/ Medical History: Reports: Hx Ovarian Cysts. Denies: Hx Peritoneal Dialysis Skin Medical History: Reports Hx Eczema - Immunizations Immunizations up to date: Yes Hx Diphtheria, Pertussis, Tetanus Vaccination: Yes - 2014 Physical Exam - Vital signs Vitals: Temp Pulse Resp BP Pulse Ox 99.2 F 92 20 128/88 H 98 01/29/20 09:54 01/29/20 09:54 01/29/20 09:54 01/29/20 09:54 01/29/20 09:54 Course - Vital Signs Vital signs: Temp Pulse Resp BP Pulse Ox 99.2 F 92 20 128/88 H 98 01/29/20 09:54 01/29/20 09:54 01/29/20 09:54 01/29/20 09:54 01/29/20 09:54
[2020-01-29] MEDS ORDERED: NORMAL SALINE 1000 ML 1,000 ML IV ONE (10:07)
--- NOTE | 2020-01-29 10:28 | ER Document Report ---
ED GI/ - General Chief Complaint: Flank Pain Stated Complaint: RIGHT FLANK PAIN Time Seen by Provider: 01/29/20 10:02 Primary Care Provider: JASMYN CONNOR MD [Primary Care Provider] - Follow up as needed Mode of Arrival: Ambulatory Notes: CHIEF COMPLAINT: Right flank pain for 3 days, pelvic pain for 5 days HPI: 34-year-old female who follows with WEB PROJECT MANAGER for fibroid uterus presenting f or pelvic pain for 5 days with right flank pain for 3 days. No fever nausea vomiting. Patient also complains of an abnormal vaginal discharge denies dysuria. Did not call her WEB PROJECT MANAGER for follow-up, states she has been having difficulty seeing them because of the current COVID crisis. ROS: See HPI - all other systems were reviewed and are otherwise negative Constitutional: no fever or recent illness Eyes: no drainage, no blurred vision ENT: no runny nose, no sore throat Cardiovascular: no chest pain Resp: no SOB, no cough GI: no vomiting, no diarrhea, positive pelvic pain, positive right flank pain : no dysuria, + vaginal discharge Integumentary: no rash Allergy: no hives Musculoskeletal: no extremity pain or swelling Neurological: no numbness/tingling, no weakness MEDICATIONS: I agree with the patient medications as charted by the RN. ALLERGIES: I agree with the allergies as charted by the RN. PAST MEDICAL HISTORY/PAST SURGICAL HISTORY: Reviewed and agree as charted by RN. SOCIAL HISTORY: Reviewed and agree as charted by RN. FAMILY HISTORY: No significant familial comorbid conditions directly related to patient complaint EXAM: Reviewed vital signs as charted by RN. CONSTITUTIONAL: Alert and oriented and responds appropriately to questions. Well-appearing; well-nourished mild distress secondary to pain HEAD: Normocephalic; atraumatic EYES: conjunctivae clear, sclerae non-icteric ENT: normal nose; no rhinorrhea; moist mucous membranes; pharynx without lesions noted NECK: Supple without meningismus; non-tender; no cervical lymphadenopathy, no masses CARD: RRR; no murmurs, no clicks, no rubs, no gallops; symmetric distal pulses RESP: Normal chest excursion without splinting or tachypnea; breath sounds clear and equal bilaterally; no wheezes, no rhonchi, no rales, 97% on room air not hypoxic ABD/GI: Normal bowel sounds; abdomen is somewhat distended and firm in the lower pelvic lower umbilical region with mild tenderness on palpation; soft, no rebound, no guarding; uterine enlargement palpable in the epigastric region : Female nurse photograph finisher present. External genitalia normal. No skin lesions noted. Pelvic Exam: No active bleeding. No purulent discharge. Cervix appears normal. No CMT. No lesions or masses. Uterus significantly enlarged and mildly tender. Right/Left adnexa normal size and non tender. BACK: The back appears normal and is non-tender to palpation, there is mild right CVA tenderness EXT: Normal ROM in all joints; non-tender to palpation; no cyanosis, no effusions, no edema SKIN: Normal color for age and race; warm; dry; good turgor; no acute lesions noted NEURO: Moves all extremities equally; Motor and sensory function intact PSYCH: The patient's mood and manner are appropriate. Grooming and personal hygiene are appropriate. MDM: 34-year-old female with history of fibroid uterus presenting with right flank pain and pelvic pain with discharge. Patient has significant uterine enlargement I suspect this is likely causing some compression of her other organ structures likely causing her symptoms. Awaiting ultrasound results will discuss with STUD SETTER TRAVEL OUTSIDE OF THE [place] IN LAST 30 DAYS: No - Related Data Allergies/Adverse Reactions: cabbage Allergy (Verified 01/29/20 10:15) carrot Allergy (Verified 01/29/20 10:15) No Known Drug Allergies Allergy (Verified 01/29/20 10:15) Past Medical History - General Information source: Patient - Social History Smoking Status: Never Smoker Family History: Arthritis, DM, Hypertension, Other - sickle cell. denies: CAD, COPD, CVA, Hyperlipidemia, Malignancy, Thyroid Disfunction Patient has suicidal ideation: No Patient has homicidal ideation: No Pulmonary Medical History: Reports: Hx Asthma Neurological Medical History: Reports: Hx Seizures Renal/ Medical History: Reports: Hx Ovarian Cysts. Denies: Hx Peritoneal Dialysis Skin Medical History: Reports Hx Eczema - Immunizations Immunizations up to date: Yes Hx Diphtheria, Pertussis, Tetanus Vaccination: Yes - 2014 Physical Exam - Vital signs Vitals: Temp Pulse Resp BP Pulse Ox 99.2 F 92 20 128/88 H 98 01/29/20 09:54 01/29/20 09:54 01/29/20 09:54 01/29/20 09:54 01/29/20 09:54 Course - Re-evaluation Re-evalutation: 01/29/20 12:00 Ultrasound shows a 6 x 6 x 6 cm intrauterine fibroid but also calling a 17 x 12 x 9 cm right ovarian mass or fibroid that they feel is separate from the uterus. I discussed this with Dr. Brandt the WEB PROJECT MANAGER. She feels that this would be more concerning as the CT read in March 2019, commented on a 21 cm uterus with multiple fibroids but did not comment specifically on a detached separate mass. She is requesting CT imaging at this time I will plan to discuss the results with her after CT 01/29/20 13:[address] Brandt, we discussed the CT findings she believes that the fibroid is coming off the broad ligament is not attached to the adnexa likely is pedunculated. She requests that we treat patient's pain, have her call the office today and schedule close follow-up in the office. Aware that I have treated her for trichomonas today. Will likely need to schedule hy sterectomy - Vital Signs Vital signs: Temp Pulse Resp BP Pulse Ox 99.2 F 92 20 128/88 H 98 01/29/20 10:02 01/29/20 09:54 01/29/20 09:54 01/29/20 09:54 01/29/20 09:54 - Laboratory Result Diagrams: 01/29/20 10:34 01/29/20 10:34 Laboratory results interpreted by me: 01/29/20 01/29/20 01/29/20 10:10 10:34 10:34 Hgb 11.4 L Hct 33.0 L RDW 16.1 H Lipase 374.1 H Urine Protein 30 H Urine Blood LARGE H Ur Leukocyte Esterase TRACE H Urine Ascorbic Acid 20 H Discharge - Discharge Clinical Impression: Acute right flank pain, Trichomonas infection Uterine fibroid Qualifiers: Uterine leiomyoma location: intramural, submucous, and subserous Qualified Code(s): D25.1 - Intramural leiomyoma of uterus; D25.0 - Submucous leiomyoma of uterus; D25.2 - Subserosal leiomyoma of uterus Condition: Stable Disposition: HOME, SELF-CARE Additional Instructions: It is very important that you follow-up through your WEB PROJECT MANAGER office, call today to obtain close follow-up for reevaluation. It was noticed on your imaging studies that the uterine fibroids have significantly enlarged since you were last imaged. I did speak with Dr. Brandt about you, she feels that you can follow-up outpatient at this time. You were treated for trichomonas today, this is considered a sexually transmitted disease. Make sure you notify any sexual partners of need for treatment, no sexual intercourse for 10 days. Prescriptions: Oxycodone HCl/Acetaminophen [Percocet 5-325 mg Tablet] 1 tab PO Q4H PRN #15 tab PRN Reason: Referrals: JASMYN CONNOR MD [Primary Care Provider] - Follow up as needed PASCALE BRANDT MD [ACTIVE STAFF] - Follow up as needed
[2020-01-29 10:43] LABS: APPEARANCE,URINE CLEAR; BILIRUBIN,URINE NEGATIVE (NEGATIVE); COLOR,URINE YELLOW; GLUCOSE, URINE NEGATIVE (NEGATIVE); KETONES,URINE NEGATIVE (NEGATIVE); LEUKOCYTE ESTERASE,URINE TRACE (NEGATIVE); NITRITE,URINE NEGATIVE (NEGATIVE); PROTEIN,URINE 30 mg/dL (NEGATIVE); URINE SPECIFIC GRAVITY 1.012; UROBILINOGEN,URINE NEGATIVE mg/dL (<2.0)
[2020-01-29 10:48] LABS: ABSOLUTE BASOPHILS # (AUTO) 0.1 10^3/uL (0.0-0.2); ABSOLUTE EOSINOPHILS # (AUTO) 0.1 10^3/uL (0.0-0.6); ABSOLUTE LYMPHOCYTES (AUTO) 1.7 10^3/uL (0.5-4.7); ABSOLUTE MONOCYTES (AUTO) 0.6 10^3/uL (0.1-1.4); ABSOLUTE NEUT (AUTO) 7.2 10^3/uL (1.7-8.2); BASOPHILS % (AUTO) 0.9 % (0-2); EOSINOPHILS % (AUTO) 1.3 % (0-6); HEMOGLOBIN 11.4 g/dL (12.0-15.5); LYMPHOCYTES % (AUTO) 17.8 % (13-45); MEAN CORPUSCULAR HEMOGLOBIN 27.5 pg (27.0-33.4); MEAN CORPUSCULAR HGB CONC 34.5 g/dL (32.0-36.0); MEAN CORPUSCULAR VOLUME 80 fl (80-97); MONOCYTES % (AUTO) 6.5 % (3-13); PLATELET COUNT 333 10^3/uL (150-450); RED BLOOD COUNT 4.14 10^6/uL (3.72-5.28); RED CELL DISTRIBUTION WIDTH 16.1 % (11.5-14.0); SEGMENTED NEUTROPHILS % (AUTO) 73.5 % (42-78); TOTAL CELLS COUNTED % (AUTO) 100 %; WHITE BLOOD COUNT 9.8 10^3/uL (4.0-10.5)
[2020-01-29 11:10] LABS: ALBUMIN 3.8 g/dL (3.5-5.0); ALKALINE PHOSPHATASE 81 U/L (38-126); ANION GAP 7 (5-19); ASPARTATE AMINO TRANSFERASE 22 U/L (14-36); BILIRUBIN,TOTAL 0.6 mg/dL (0.2-1.3); BLOOD UREA NITROGEN 9 mg/dL (7-20); CARBON DIOXIDE 29 mmol/L (22-30); CHLORIDE 104 mmol/L (98-107); GLUCOSE 100 mg/dL (75-110); POTASSIUM 3.7 mmol/L (3.6-5.0); TOTAL PROTEIN 7.4 g/dL (6.3-8.2)
[2020-01-29 11:33] LABS: BACTERIA (WET MOUNT) 3+ BACTERIA SEEN; EPITHELIALS (WET MOUNT) 3+ EPITHELIALS SEEN; RBCS (WET MOUNT) FEW RBCS SEEN; T.VAGINALIS (WET MOUNT) TRICHOMONAS SEEN; WBCS (WET MOUNT) 2+ WBCS SEEN; YEAST (WET MOUNT) NO YEAST SEEN
--- NOTE | 2020-01-29 11:38 | RADIOLOGY REPORT (SQ) ---
EXAM DESCRIPTION: U/S NON OB PEL W/DOPPLER IMAGES COMPLETED DATE/TIME: 01/29/2020 11:17 am REASON FOR STUDY: pelvic pain COMPARISON: None. TECHNIQUE: Dynamic and static grayscale images acquired of the pelvis via transabdominal approach an d recorded on PACS. Additional selected color Doppler and spectral images recorded. LIMITATIONS: None. FINDINGS: UTERUS: The uterus measures 15.8 x 13.5 x 11.1 cm. The echotexture of the myometrium is h eterogeneous. There are several uterine fibroids the largest of which measures 6.4 x 5.9 x 6.4 cm pe r ENDOMETRIAL STRIPE: The endometrium measures 4.7 mm in thickness. CERVIX: The cervix measures 3.3 cm in length. RIGHT OVARY AND DOPPLER: The right ovary measures 3.7 x 1.9 x 2.7 cm and on Doppler there is intact a rterial inflow and venous outflow within the ovarian stroma. There is a heterogeneous mass in the ri ght adnexa (that is separate from the uterus) and measures 16.7 x 11.8 x 9.1 cm ; the mass represents a fibroid. LEFT OVARY AND DOPPLER: The left ovary measures 3.8 x 2.1 x 2.1 cm and on Doppler there is intact art erial inflow and venous outflow within the ovarian stroma. There is no adnexal mass. FREE FLUID: None noted. OTHER: No other finding. IMPRESSION: 1. Enlarged heterogeneous uterus with numerous bulky fibroids. 2. No evidence of ovarian torsion. 3. Other findings as detailed above. TECHNICAL DOCUMENTATION: JOB ID: [id number] 2010 [employer]- All Rights Reserved Reading location - IP/workstation name: [email or web address]
--- NOTE | 2020-01-29 11:46 | RADIOLOGY REPORT (SQ) ---
EXAM DESCRIPTION: U/S RETROPERITON (RENAL/AORTA) IMAGES COMPLETED DATE/TIME: 01/29/2020 11:17 am REASON FOR STUDY: right flank pain COMPARISON: None. TECHNIQUE: Dynamic and static grayscale images acquired of the kidneys and bladder and recorded on P ACS. Additional selected color Doppler and spectral images recorded. LIMITATIONS: None. FINDINGS: RIGHT KIDNEY: The right kidney measures 8.6 cm in length. The echotexture of the renal pa renchymal is normal. There is no hydronephrosis, calcification or mass. LEFT KIDNEY: The left kidney measures 9.2 cm in length. The echotexture of the renal parenchyma is normal. There is no hydronephrosis, calcification or mass. BLADDER: Unable to visualize the urinary bladder. OTHER FINDINGS: No other finding. IMPRESSION: 1. No abnormality of the kidneys. 2. Unable to visualize the urinary bladder (the patient voided before the exam). TECHNICAL DOCUMENTATION: JOB ID: [id number] 2010 [employer]- All Rights Reserved Reading location - IP/workstation name: [email or web address]
[2020-01-29] MEDS ORDERED: METRONIDAZOLE 500 MG TABLET PO ONE (11:50)
[2020-01-29] MEDS ORDERED: ONDANSETRON HCL INJ/PF 4 MG/2 ML SDV IV ONE (11:59)
[2020-01-29] MEDS ORDERED: MORPHINE SULFATE 10 MG/ML INJ IV ONE (11:59)
[2020-01-29 13:01] LABS: CHLAM PCR NOT DETECTED (NOT DETECT)
--- NOTE | 2020-01-29 13:08 | RADIOLOGY REPORT (SQ) ---
EXAM DESCRIPTION: CT ABD/PELVIS WITH IV ONLY IMAGES COMPLETED DATE/TIME: 01/29/2020 11:28 am REASON FOR STUDY: evaluate poss right ovarian vs uterine mass? Pelvic pain. COMPARISON: Pelvic ultrasound same date. CT abdomen and pelvis, 03/16/2019. TECHNIQUE: CT scan of the abdomen and pelvis performed using helical scanning technique with dynamic intravenous contrast injection. No oral contrast. Images reviewed with lung, soft tissue, and bone windows. Reconstructed coronal and sagittal MPR images reviewed. Delayed images for evaluation of the urinary system also acquired. All images stored on PACS. All CT scanners at this facility use dose modulation, iterative reconstruction, and/or weight based d osing when appropriate to reduce radiation dose to as low as reasonably achievable (ALARA). [facility]: Dose Right [facility]: CareDose [facility]: Dose Right [facility]: Teradose 4D [facility]: [employer] CONTRAST TYPE AND DOSE: contrast/concentration: Isovue 350.00 mg/ml; Total Contrast Delivered: 100.0 ml; Total Saline Delivered: 70.0 ml RENAL FUNCTION: GFR > 60. RADIATION DOSE: CT Rad equipment meets quality standard of care and radiation dose reduction techniq ues were employed. CTDIvol: 12.2 - 16.2 mGy. DLP: 1582 mGy-cm.. LIMITATIONS: None. FINDINGS: LOWER CHEST: Minimal dependent atelectasis at the lung bases. No focal consolidation or p leural effusion. 5 mm noncalcified pulmonary nodule in the right middle lobe is stable. LIVER: Normal size. No masses. No dilated ducts. SPLEEN: Normal size. No focal lesions. PANCREAS: No masses. No significant calcifications. No adjacent inflammation or peripancreatic fluid collections. Pancreatic duct not dilated. GALLBLADDER: No identified stones by CT criteria. No inflammatory changes to suggest cholecystitis. ADRENAL GLANDS: No significant masses or asymmetry. RIGHT KIDNEY AND URETER: No solid masses. No significant calcifications. No hydronephrosis or hyd roureter. LEFT KIDNEY AND URETER: No solid masses. No significant calcifications. No hydronephrosis or hydr oureter. AORTA AND VESSELS: No aortic aneurysm or dissection. The renal arteries have normal caliber and appe arance. No significant atherosclerotic disease. There are enlarged pelvic veins particularly in the right pelvis. RETROPERITONEUM: No retroperitoneal adenopathy, hemorrhage or masses. BOWEL AND PERITONEAL CAVITY: No masses or inflammatory changes. No free fluid or peritoneal masses. APPENDIX: Normal. PELVIS: The uterus is markedly enlarged measuring at least 26.2 x 10 x 11.8 cm. Multiple heterogeneo us uterine leiomyomas, the largest at the uterine fundus extends superiorly measuring 17.8 x 11.8 by 13.7 cm, increased in size from previous CT performed 03/16/2019, at which time it measured 17.3 x 10. 7 by 13 cm. This has a heterogeneous appearance with central hypodense attenuation, consistent with central necrosis. Increased size of a left myometrial leiomyoma now measuring 10.3 x 8.9 by 12.5 cm, previously 8.2 x 7.6 by 7.7 cm. This has a heterogeneous appearance with probable internal fluid le vels. There is an exophytic mass in the anterior right pelvis with a well-circumscribed margin measu ring 4.9 x 3.1 by 3.2 cm also increased in size from previous 3.7 x 2.3 x 2.9 cm. The ovaries are no t definitely visualized. There is what appears to be fluid density in the right adnexa surrounding t he enlarged veins. No evidence of active extravasation. . ABDOMINAL WALL: No masses. No hernias. BONES: No significant or acute findings. OTHER: No other significant finding. IMPRESSION: 1. Massively enlarged uterus with interval increase in size of multiple uterine leiomyomas since prev ious examination performed 03/16/2019. Enlarged right venous collaterals. There is a separate mass i n the anterior right adnexa which may represent an additional uterine leiomyoma or possibly a leiomyo ma within the broad ligament. No suspicious features. Further characterization with pelvic MRI may be helpful. Surgical consultation is recommended. TECHNICAL DOCUMENTATION: JOB ID: [id number] Quality ID # [id number]: Final reports with documentation of one or more dose reduction techniques (e.g., Au tomated exposure control, adjustment of the mA and/or kV according to patient size, use of iterative reconstruction technique) 2010 [employer]- All Rights Reserved Reading location - IP/workstation name: [email or web address]
[2020-01-29 15:08] VITALS: BP 122/84
== END 2020-01-29 15:07 | disposition home or self-care (01) ==
LOC: ER 09:49
DX: D25.0 Submucous leiomyoma of uterus (principal); D25.2 Subserosal leiomyoma of uterus; A59.9 Trichomoniasis, unspecified; J45.909 Unspecified asthma, uncomplicated; Z91.018 Allergy to other foods
CPT/HCPCS: 99283; 96361; 96374; 96375; 36415; 87210; 83690; 85025; 81025; 80053; 81001; 87491; 87591; 76770; 76856; 93976; 74177; J1885; J2270; J2405; J7030

== ENCOUNTER 2020-09-01 21:35 | Emergency (ER) | payer SELFPAY ==
--- NOTE | 2020-09-01 22:32 | ER Document Report ---
ED Medical Screen (RME) - General Chief Complaint: Shortness Of Breath Stated Complaint: SWOLLEN FEET/SHORTNESS OF BREATH Time Seen by Provider: 09/01/20 22:22 Primary Care Provider: JASMYN CONNOR MD [Primary Care Provider] - Follow up as needed Mode of Arrival: Ambulatory Information source: Patient Notes: 34-year-old female presents to ED for complaint of bilateral leg pain swelling. She states she has a history of sickle cell anemia and asthma. She states she does not take narcotics for her sickle cell she just takes ibuprofen but she is also been on a blood thinner so her doctor told her not to take both she has not taken anything. She does take her asthma medications. She states she has not smoked in a while she rarely drinks maybe a couple times a year does not use any illicit drugs. I have ordered blood EKG chest x-ray urine and she will be seen by another provider. I have greeted and performed a rapid initial assessment of this patient. A comprehensive ED assessment and evaluation of the patient, analysis of test results and completion of medical decision making process will be conducted by an additional ED providers. TRAVEL OUTSIDE OF THE [place] IN LAST 30 DAYS: No - Related Data Allergies/Adverse Reactions: cabbage Allergy (Verified 01/29/20 10:15) carrot Allergy (Verified 01/29/20 10:15) No Known Drug Allergies Allergy (Verified 01/29/20 10:15) Past Medical History Pulmonary Medical History: Reports: Hx Asthma Neurological Medical History: Reports: Hx Seizures Renal/ Medical History: Reports: Hx Ovarian Cysts. Denies: Hx Peritoneal Dialysis Skin Medical History: Reports Hx Eczema - Immunizations Immunizations up to date: Yes Hx Diphtheria, Pertussis, Tetanus Vaccination: Yes - 2014 Physical Exam - Vital signs Vitals: Temp Pulse Resp BP Pulse Ox 98.2 F 100 18 118/82 100 09/01/20 21:54 09/01/20 21:54 09/01/20 21:54 09/01/20 21:54 09/01/20 21:54 Course - Vital Signs Vital signs: Temp Pulse Resp BP Pulse Ox 98.2 F 100 18 118/82 100 09/01/20 21:54 09/01/20 21:54 09/01/20 21:54 09/01/20 21:54 09/01/20 21:54 Doctor's Discharge - Discharge Referrals: JASMYN CONNOR MD [Primary Care Provider] - Follow up as needed
[2020-09-01 23:01] LABS: ABSOLUTE BASOPHILS # (AUTO) 0.1 10^3/uL (0.0-0.2); ABSOLUTE EOSINOPHILS # (AUTO) 0.2 10^3/uL (0.0-0.6); ABSOLUTE LYMPHOCYTES (AUTO) 3.1 10^3/uL (0.5-4.7); ABSOLUTE MONOCYTES (AUTO) 0.9 10^3/uL (0.1-1.4); ABSOLUTE NEUT (AUTO) 7.1 10^3/uL (1.7-8.2); ABSOLUTE RETICS # 0.092 10^6/uL (0.028-0.122); BASOPHILS % (AUTO) 0.6 % (0-2); EOSINOPHILS % (AUTO) 1.7 % (0-6); HEMATOCRIT 36.4 % (36.0-47.0); HEMOGLOBIN 12.2 g/dL (12.0-15.5); MEAN CORPUSCULAR HEMOGLOBIN 28.8 pg (27.0-33.4); MEAN CORPUSCULAR HGB CONC 33.6 g/dL (32.0-36.0); MEAN CORPUSCULAR VOLUME 86 fl (80-97); MONOCYTES % (AUTO) 8.1 % (3-13); PLATELET COUNT 302 10^3/uL (150-450); RED BLOOD COUNT 4.25 10^6/uL (3.72-5.28); RED CELL DISTRIBUTION WIDTH 14.9 % (11.5-14.0); RETICULOCYTE COUNT (AUTO) 2.15 % (0.66-2.85); SEGMENTED NEUTROPHILS % (AUTO) 62.6 % (42-78); TOTAL CELLS COUNTED % (AUTO) 100 %; WHITE BLOOD COUNT 11.4 10^3/uL (4.0-10.5)
[2020-09-01 23:21] LABS: APPEARANCE,URINE SLIGHTLY-CLOUDY; BILIRUBIN,URINE NEGATIVE (NEGATIVE); COLOR,URINE YELLOW; GLUCOSE, URINE NEGATIVE (NEGATIVE); KETONES,URINE NEGATIVE (NEGATIVE); LEUKOCYTE ESTERASE,URINE NEGATIVE (NEGATIVE); NITRITE,URINE NEGATIVE (NEGATIVE); PROTEIN,URINE 30 mg/dL (NEGATIVE); URINE SPECIFIC GRAVITY 1.013
--- NOTE | 2020-09-01 23:26 | RADIOLOGY REPORT (SQ) ---
EXAM DESCRIPTION: XR CHEST 2 VIEWS COMPLETED DATE/TME: 09/01/2020 22:51 CLINICAL HISTORY: 34 years, Female, Swelling to bilateral legs short of breath see HPI COMPARISON: EXAM DESCRIPTION: CHEST 2 VIEWS CLINICAL HISTORY: Swelling to bilateral legs short of breath see HPI COMPARISON: None. FINDINGS: There is bilateral peribronchial cuffing. There is mild pulmonary edema. No focal consolidation is identified. Heart size is normal no significant pleural effusion. No pneumothorax is seen. IMPRESSION: Findings suggest viral inflammation or pulmonary edema of other etiology.
[2020-09-01 23:31] LABS: ALKALINE PHOSPHATASE 89 U/L (38-126); ANION GAP 7 (5-19); ASPARTATE AMINO TRANSFERASE 18 U/L (14-36); BILIRUBIN,DIRECT 0.1 mg/dL (0.0-0.4); BILIRUBIN,TOTAL 0.4 mg/dL (0.2-1.3); BLOOD UREA NITROGEN 13 mg/dL (7-20); CALCIUM 9.4 mg/dL (8.4-10.2); CARBON DIOXIDE 29 mmol/L (22-30); CHLORIDE 102 mmol/L (98-107); CREATINE KINASE 84 U/L (30-135); POTASSIUM 3.6 mmol/L (3.6-5.0); TOTAL PROTEIN 7.3 g/dL (6.3-8.2)
[2020-09-01 23:34] LABS: GLUCOSE 65 mg/dL (75-110)
--- NOTE | 2020-09-02 01:26 | ER Document Report ---
ED General - General Chief Complaint: Feet Swelling Stated Complaint: SWOLLEN FEET/SHORTNESS OF BREATH Time Seen by Provider: 09/01/20 22:22 Primary Care Provider: JASMYN CONNOR MD [Primary Care Provider] - Follow up as needed Mode of Arrival: Ambulatory TRAVEL OUTSIDE OF THE [place] IN LAST 30 DAYS: No - HPI Context: This is a 34-year-old female who presents to the emergency department complaining of swelling in her feet bilaterally and exacerbation of her asthma symptoms. Patient states her symptoms have been present for couple of days. Patient states she does have a history of asthma and when the weather gets cooler as it has been recently, she tends to become symptomatic in terms of wheezing. Patient states that she has her vials for her nebulizer at home but does not have an inhaler available to her. Patient states that her sickle cell pain crises tend to present themselves with bilateral foot swelling. Patient states she usually works 8-hour shifts at [employer] but stayed out of work today to trying to rest to see if that would help with the swelling in her feet. Patient is also complaining of pain in her feet. Patient states that rest alone did not seem to resolve her symptoms. Patient describes the pain in her feet as tight and rates it as a 3 out of 5. Patient states her pain is made worse by standing or walking and is only minimally relieved by getting off of her feet. Patient states her shortness of breath is worse with any type of exertion and is alleviated by breathing treatments. Patient denies fever, c hills, history of COVID-19, known exposure to persons positive for COVID-19, known exposure to persons under investigation for COVID-19. Associated symptoms: Other - See HPI Exacerbated by: Other - See HPI Relieved by: Other - See HPI Similar symptoms previously: Yes Recently seen / treated by doctor: No - Related Data Allergies/Adverse Reactions: cabbage Allergy (Verified 01/29/20 10:15) carrot Allergy (Verified 01/29/20 10:15) No Known Drug Allergies Allergy (Verified 01/29/20 10:15) Home Medications: Albuterol, Motrin Past Medical History - General Information source: Patient - Social History Smoking Status: Former Smoker Lives with: Family Family History: Reviewed & Not Pertinent, Arthritis, DM, Hypertension, Other - sickle cell. denies: CAD, COPD, CVA, Hyperlipidemia, Malignancy, Thyroid Disfunction Patient has homicidal ideation: No Pulmonary Medical History: Reports: Hx Asthma Neurological Medical History: Reports: Hx Seizures Renal/ Medical History: Reports: Hx Ovarian Cysts. Denies: Hx Peritoneal Dialysis Skin Medical History: Reports Hx Eczema - Immunizations Immunizations up to date: Yes Hx Diphtheria, Pertussis, Tetanus Vaccination: Yes - 2014 Review of Systems - Review of Systems Notes: Review of systems as below unless otherwise stated in HPI. CONSTITUTIONAL [No] fever, [No] chills. EYES [No] eye pain. ENT [No] URI symptoms, [No] sore throat, [No] ear pain. CARDIOVASCULAR [No] chest pain, [No] palpitations, [No] edema. RESPIRATORY [No] Cough, [positive] SOB, [positive] wheezing. GASTROINTESTINAL [No] abdominal pain, [No] nausea, [No] Diarrhea, [No] Vomiting, [No] constipation, [No] melena, [No] rectal bleeding. GENITOURINARY [No] dysuria, [No] urinary frequency, [No] hematuria, [No] urinary urgency, [No] vaginal discharge, [No] vaginal bleeding. MUSCULOSKELETAL [No] Back pain. Positive swelling of feet SKIN [No] Rash. NEUROLOGIC [No] Headache, [No] recent seizures, [No] paralysis,[No] parathesias. ENDOCRINE [No] polyuria. HEMO/LYMPATIC [No] easy brusing PSYCHIATRIC [No] depression. Physical Exam - Vital signs Vitals: Temp Pulse Resp BP Pulse Ox 98.2 F 100 18 118/82 100 09/01/20 21:54 09/01/20 21:54 09/01/20 21:54 09/01/20 21:54 09/01/20 21:54 - Notes Notes: CONSTITUTIONAL [Vital signs reviewed, Patient appears comfortable, Alert and oriented X 3, Normal stature.] HEAD [Atraumatic, Normocephalic.] EYES [Eyes are normal to inspection, No discharge from eyes, Extraocular muscles intact, Sclera are normal, Conjunctiva are normal.] ENT [External ears normal to inspection, Nose examination normal, Mouth normal to inspection.] NECK [Normal ROM, No jugular venous distention, No meningeal signs, ] RESPIRATORY CHEST [Chest is nontender, Breath sounds normal, No respiratory distress.] CARDIOVASCULAR [RRR, No murmurs, Normal S1 S2, No rub, No gallop.] ABDOMEN [Abdomen is nontender, No pulsatile masses, No other masses, Bowel sounds normal, No distension, No peritoneal signs, No hernias.] BACK [There is no CVA Tenderness, There is no tenderness to palpation, Normal inspection.] UPPER EXTREMITY [Inspection normal, No cyanosis, No clubbing, No edema, LOWER EXTREMITY [Inspection normal, No cyanosis, No clubbing, nonpitting edema is present in both feet, no calf tenderness. Sensation is intact in all 10 toes and cap refill is less than 2 seconds NEURO [No focal motor deficits, No focal sensory deficits, Speech normal.] SKIN [Skin is warm, Skin is dry, Skin is normal color.] PSYCHIATRIC [Normal affect. ] Course - Re-evaluation Re-evalutation: 09/02/20 01:26 Results of ED MSE discussed with patient. When asked if all questions were answered and if all concerns related to this visit were addressed, patient answered in the affirmative. Emergency signs and symptoms, reasons to return to the emergency department discussed with patient. - Vital Signs Vital signs: Temp Pulse Resp BP Pulse Ox 98.2 F 100 18 118/82 100 09/01/20 21:54 09/01/20 21:54 09/01/20 21:54 09/01/20 21:54 09/01/20 21:54 - Laboratory Result Diagrams: 09/01/20 22:35 09/01/20 22:35 Laboratory results interpreted by me: 09/01/20 09/01/20 09/01/20 22:35 22:35 22:35 WBC 11.4 H RDW 14.9 H Glucose 65 L POC Glucose Urine Protein 30 H Urine Blood MODERATE H Urine Urobilinogen 2.0 H 09/02/20 00:18 WBC RDW Glucose POC Glucose 122 H Urine Protein Urine Blood Urine Urobilinogen - Diagnostic Test Radiology reviewed: Reports reviewed - EKG Interpretation by Me Additional EKG results interpreted by me: 09/02/20 01:30 EKG obtained on 09/01/2020 at 2302 hrs. was interpreted by this MD. Findings: Normal sinus rhythm, rate 88, normal axis, ND interval appears to be within normal limits, P waves preceding QRS complexes, QRS complex appears to be within normal limits, QTC is 431, there are no obvious patterns of ST segment elevation, depression or reciprocal changes seen to suggest acute myocardial ischemia or infarction. There is no prior EKG available for comparison. Impression: Normal sinus rhythm with nonspecific ST segments. Discharge - Discharge Clinical Impression: Sickle cell pain crisis Asthma exacerbation Qualifiers: Asthma severity: unspecified severity Asthma persistence: unspecified Qualified Code(s): J45.901 - Unspecified asthma with (acute) exacerbation Condition: Stable Disposition: HOME, SELF-CARE Additional Instructions: Return to the Emergency Department without delay if any worse. HOME CARE INSTRUCTIONS & INFORMATION: Thank you for choosing us for your medical needs. We hope you're satisfied with the care you received. After you leave, you must properly care for your problem and, at the same time, observe its progress. Any condition can change. Some illnesses can change rapidly over hours or days. If your condition worsens, return to the Emergency Department or see your physician promptly. ABOUT YOUR X-RAYS AND EKG'S: If you had an EKG or X-rays taken, they have been read by the Emergency Physician. The X-rays and EKG's will also be read by a Radiologist or Shop Coordinator within 24 hours. If discrepancies are noted, you will be notified by telephone. Please be certain the ED has a correct telephone number & address where you can be reached. Also, realize that some fractures or abnormalities do not show up on initial X-rays. If your symptoms continue, see your physician. ABOUT YOUR LABORATORY TEST: If you had laboratory tests, the results have been reviewed by the Emergency Physician. Some test results (for example cultures) may not be available for several days. You will be contacted if any test result shows you need additional treatment. Please be certain the ED has a correct telephone number and address where you can be reached. ABOUT YOUR MEDICATIONS: You will receive instructions on how to take your medicine on the prescription label you receive. Additional information may be provided by the Pharmacy. If you have questions afterwards, call the ED for clarification or further instructions. Some prescribed medications may cause drowsiness. Do not perform tasks such as driving a car or operating machinery without consulting your Pharmacist. If you feel you need a refill of pain medication, your condition will need re-evaluation. Please do not call for a refill of any medication. ABOUT YOUR SIGNATURE: Signature of this document acknowledges to followin. Understanding that you received emergency treatment and that you may be released before al medical problems are known or treated. Please be certain the ED has a correct phone number & address where you can be reached. 2. Acknowledgement that you will arrange for follow-up care as recommended. 3. Authorization for the Emergency Physician to provide information to your follow-up Physician in order to maximize your care. AT ANY TIME, IF YOUR SYMPTOMS CHANGE SIGNIFICANTLY OR WORSEN OR YOU DEVELOP NEW SYMPTOMS, RETURN TO THE EMERGENCY DEPARTMENT IMMEDIATELY FOR RE-EVALUATION. OUR GOAL IS TO PROVIDE EXCELLENT MEDICAL CARE! WE HOPE THAT WE HAVE MET YOUR EXPECTATIONS DURING YOUR EMERGENCY DEPARTMENT VISIT AND THAT YOU FEEL YOU HAVE RECEIVED EXCELLENT CARE! Forms: Return to Work Referrals: JASMYN CONNOR MD [Primary Care Provider] - Follow up as needed
[2020-09-02] MEDS ORDERED: ONDANSETRON 4 MG TAB.RAPDIS PO ONE (01:33)
[2020-09-02] MEDS ORDERED: HYDROCODONE/ACETAMINOPHEN 5-325 MG (6 TAB/ER DISP) PO PRN (01:33)
[2020-09-02] MEDS ORDERED: HYDROCODONE/ACETAMINOPHEN 5-325 MG TABLET PO ONE (01:33)
[2020-09-02] MEDS ORDERED: ONDANSETRON ODT 4 MG TAB (6 TAB/ER DISP) PO PRN (01:33)
[2020-09-02] MEDS ORDERED: PREDNISONE 20 MG TABLET PO ONE (01:34)
[2020-09-02] MEDS ORDERED: ALBUTEROL SULFATE HFA (90 MCG/PUFF) 8 GM MDI IH STA (01:34)
[2020-09-02 02:32] VITALS: BP 131/89
--- NOTE | 2020-09-02 06:34 | EKG REPORT ---
SEVERITY:- NORMAL ECG - SINUS RHYTHM : Confirmed by: Misha Rasmussen MD 02-Sep-2020 06:34:16
== END 2020-09-02 02:31 | disposition home or self-care (01) ==
LOC: ER 21:35
DX: D57.00 Hb-SS disease with crisis, unspecified (principal); J45.901 Unspecified asthma with (acute) exacerbation; R60.0 Localized edema; M79.671 Pain in right foot; M79.672 Pain in left foot; Z79.899 Other long term (current) drug therapy; Z87.891 Personal history of nicotine dependence; Z91.018 Allergy to other foods
CPT/HCPCS: 93005; 99285; 36415; 82962; 82550; 84703; 85025; 85045; 80053; 81001; 84484; 71046; 93010; S0119; J7512; J3490